=== PATIENT | male | born 1960 | race Two or more races ===

== ENCOUNTER 2025-09-04 14:06 | Emergency (ER) | payer BC ==
[~2025-09-04] VITALS: Ht 165.1 cm; Wt 104.3 kg
[2025-09-04] MEDS ORDERED: JARDIANCE10 MG PO (14:15)
[2025-09-04] MEDS ORDERED: ZETIA10 MG PO (14:15)
[2025-09-04] MEDS ORDERED: XELPROS2.5 ML OP (14:15)
[2025-09-04] MEDS ORDERED: AMOX-CLAV 875-1 EAC1 PO (17:22)
== END 2025-09-04 21:51 | disposition home or self-care (01) ==
LOC: ER 14:07
DX: K57.92 Diverticulitis of intestine, part unspecified, without perforation or abscess without bleeding (principal); R10.9 Unspecified abdominal pain; E11.9 Type 2 diabetes mellitus without complications